=== PATIENT | male | born 1995 | race Caucasian/White ===

== ENCOUNTER 2017-05-12 13:13 | Outpatient (CLI) | payer OTHER ==
--- NOTE | 2017-05-12 15:37 | RAD ---
RIGHT SHOULDER ARTHROGRAM: History: 22-year-old male with history of right shoulder pain and clinical concern for labral tear. Fluoroscopy time: 0.8 minutes, dose 160.6 mGy*cm^2. FINDINGS: Following informed consent, the right shoulder was prepped and draped in usual sterile fashion. Local anesthesia was obtained with 1% Xylocaine. A 22 gauge needle was introduced into the anterior superi or glenohumeral joint. Approximately 15 cc of a mixture of gadolinium and iodinated contrast media wa s injected. Spot films confirmed intraarticular location. The patient tolerated the procedure well and was moved to MRI for post arthrogram MRI. IMPRESSION: Successful right shoulder arthrogram. Patient moved to MRI. POS: [facility]
--- NOTE | 2017-05-12 16:20 | MRI ---
RIGHT SHOULDER MRI POST ARTHROGRAM CONTRAST: HISTORY: A 22-year-old male with a history of right shoulder pain after an injury throwing a baseline. Multiplanar, multisequence MRI examination of the right shoulder is performed. There is some [place] ping of the lateral acromion which somewhat depresses the supraspinatus myotendinous region. There i s some very subtle irregularity of the undersurface of the conjoined tendon, possibly some very mild fraying. There is some abnormal high signal fluid density involving the chondrolabral region of the posterior aspect of the superior labrum and superior portion of the posterior labrum with some minima l associated labral blunting, evidence for an associated tear. No evidence for an osteochondral defe ct. No abnormal marrow signal. IMPRESSION: Small focus of focal chondrolabral separation involving the junction of the posterior superior and alfredo perior posterior labrum with some associated labral blunting, evidence for an associated labral tear. Some very subtle irregularity of the undersurface of the magic angle of the conjoined tendon, possi monica some mild fraying. Downsloping of the lateral acromion. POS: [facility]
== END 2017-05-12 13:14 | disposition home or self-care (01) ==
LOC: RAD 13:13
PROVIDERS: ATTEND Specialist
DX: M25.811 Other specified joint disorders, right shoulder (principal); S43.401A Unspecified sprain of right shoulder joint, initial encounter; L94.8 Other specified localized connective tissue disorders
CPT/HCPCS: 23350